=== PATIENT | female | born 1965 | race African-American/Black ===

== ENCOUNTER 2020-08-07 06:14 | Observation (INO) | payer MEDICARE ==
[~2020-08-07] VITALS: Ht 180.3 cm; Wt 90.7 kg
[2020-08-07 07:03] LABS: BASOPHILS 1.1 % (0-2); EOSINOPHILS 3.9 % (0-7); IMMATURE GRANULOCYTES 0.1 % (0-5); LYMPHOCYTE ABS# 2.86 10x3/uL (1.18-3.74); LYMPHOCYTES 28.4 % (15-50); MCH 29.5 pg (26.0-34.0); MCHC 30.3 g/dL (31.0-37.0); MCV 97.3 fL (80.0-100.0); MEAN PLATELET VOLUME 10.4 fL (7.4-10.4); MONOCYTES 6.6 % (2-11); NEUTROPHIL ABS# 6.03 10x3/uL (1.56-6.13); NEUTROPHILS 59.9 % (40-80); PLATELET COUNT 191 10x3/uL (130-400); RBC 3.39 10x6/uL (4.00-5.40); RDW 12.8 % (11.5-14.5); WBC 10.1 10x3/uL (4.8-10.8)
[2020-08-07 07:18] LABS: INR 1.11 (0.85-1.17); PROTIME 13.3 SECONDS (11.6-15.0)
[2020-08-07 07:26] LABS: ANION GAP 15.3 mmol/L (8-16); CALCIUM 9.6 mg/dL (8.5-10.1); CARBON DIOXIDE 25.5 mmol/L (21.0-32.0); CREATININE - SERUM 6.5 mg/dL (0.6-1.3); POTASSIUM - SERUM 3.8 mmol/L (3.5-5.1)
[2020-08-07 08:16] VITALS: BP 148/70; BMI 27.9
[2020-08-07] MEDS ORDERED: IMODIUM2 MG PO (08:26)
[2020-08-07] MEDS ORDERED: ACETAMINOPHEN500 M1 PO (08:27)
[2020-08-07] MEDS ORDERED: PLAVIX75 MG PO (08:28)
[2020-08-07] MEDS ORDERED: ELIQUIS5 MG PO (08:28)
[2020-08-07] MEDS ORDERED: LISINOPRIL2.5 MG PO (08:28)
[2020-08-07 15:31] VITALS: BP 147/70
[2020-08-07 15:34] VITALS: BP 140/70
[2020-08-07 17:12] VITALS: Ht 180.3 cm; Wt 90.7 kg
--- NOTE | 2020-08-07 19:00 | NUR ---
REPORT RECEIVED, PT CARE ASSUMED. PT SITTING UP IN BED, AAOX4, VISITING WITH FAMILY AT BEDSIDE. DENIES ANY OTHER NEEDS AT THIS TIME. BED LOWEST, SRX2, CL WITHIN REACH. CPOC.
--- NOTE | 2020-08-07 19:30 | NUR ---
PT C/O NAUSEA, PRN IM PHENERGAN ADMINISTERED, PER ORDERS.
[2020-08-07 21:41] VITALS: BP 160/74
[2020-08-08 00:39] VITALS: BP 159/75
[2020-08-08 08:26] VITALS: BP 168/68
[2020-08-08 09:23] LABS: BASOPHILS 0.4 % (0-2); EOSINOPHILS 1.4 % (0-7); HEMATOCRIT 32.3 % (36.0-48.0); HEMOGLOBIN 9.8 g/dL (12-16); IMMATURE GRANULOCYTES 0.3 % (0-5); LYMPHOCYTE ABS# 2.05 10x3/uL (1.18-3.74); LYMPHOCYTES 17.5 % (15-50); MCH 29.5 pg (26.0-34.0); MCHC 30.3 g/dL (31.0-37.0); MCV 97.3 fL (80.0-100.0); MEAN PLATELET VOLUME 10.6 fL (7.4-10.4); MONOCYTES 8.9 % (2-11); NEUTROPHIL ABS# 8.35 10x3/uL (1.56-6.13); NEUTROPHILS 71.5 % (40-80); PLATELET COUNT 171 10x3/uL (130-400); RBC 3.32 10x6/uL (4.00-5.40); RDW 12.8 % (11.5-14.5); WBC 11.7 10x3/uL (4.8-10.8)
[2020-08-08 09:33] LABS: ANION GAP 19.2 mmol/L (8-16); CARBON DIOXIDE 21.8 mmol/L (21.0-32.0)
[2020-08-08] MEDS ORDERED: HYDROCODON-ACE1 EAC7 PO (12:22)
--- NOTE | 2020-08-08 18:08 | NUR ---
RETURNED FROM DIALYSIS, REMOVED WHAT WAS REPORTED FROM SURGERY YESTERDAY A PIV, WHICH WAS ACTUALLY A MIDLINE. DRESSING APPLIED. FAMILY FEEDING PATIENT BEFORE DISCHARGE PAPERS.
--- NOTE | 2020-08-11 16:02 | OP ---
PATIENT NAME: JACE GALLARDO MEDICAL RECORD: [id number] :67 LOCATION:D. [id number] ADMISSION DATE:08/07/20 SURGEON: JAH PUGA MD DATE OF OPERATION: 08/07/2020 REFERRING PHYSICIAN: Dr. Srivastava, bin cleaner in [place]. PREOPERATIVE DIAGNOSES: End-stage renal disease and end-stage hemodialysis access. POSTOPERATIVE DIAGNOSES: End-stage renal disease and end-stage hemodialysis access. OPERATION PERFORMED: Implantation of a HeRO graft outflow device via the left internal jugular vein with removal of existing tunneled dialysis catheter from the left internal jugular vein and implantation of Acuseal PTFE 4-7 mm tapered graft from the proximal left brachial artery to the HeRO outflow device over the shoulder, posterior to the clavicle. SURGEON: Jah Puga MD ANESTHESIA: General endotracheal per [employer] WORKER PREOPERATIVE NOTE: Ms. Gallardo is a 55-year-old diabetic -[place] female with end-stage renal disease and end-stage hemodialysis access. She has had numerous accesses fail or become infected. She has peripheral arterial disease and has had a lower extremity amputations and is not considered a candidate for a femoral graft and besides that is known to have bilateral femoral vein occlusions and has an inferior vena cava filter. She is known to have a right chronic brachiocephalic venous occlusion and has an automatic intracardiac defibrillator pacemaker in place on the left. She was brought to the operating room today to try to implant a HeRO graft. If possible, if the right side can be accessed in the brachiocephalic vein crossed, it would be best probably to put the graft in the right upper extremity. Otherwise, the graft will have to be placed on the left. DESCRIPTION OF PROCEDURE: Under anesthesia in supine position, the patient was prepped and draped in a sterile manner with both arms abducted, prepped and draped in a sterile manner. Using ultrasound guidance and a micropuncture needle and fluoroscopy, I tried several times to cannulate the right internal jugular vein or collaterals and I was not able to access any venous drainage going to the right atrium from that side. We subsequently went to the left. I advanced a guidewire into the inferior vena cava through the left internal jugular tunneled catheter. That catheter was removed and the tip distal 3 inches sent for culture. An introducer sleeve was placed over the wire and contrast injection performed, which demonstrated an extremely tight stenosis due to the fibrin sheathing from the internal jugular vein to the right atrium. I used an 8 mm diameter angioplasty balloon to disrupt the fibrin sheath and was then able to do a wire exchange and place an Amplatz wire in the inferior vena cava. I then passed serial dilators over the guidewire under continuous fluoroscopy and eventually I was able to advance the HeRO outflow device with an 8-mm diameter angioplasty balloon within it. I was able to advance that well down into the right atrium and removed the balloon. Contrast injection revealed a very satisfactory positioning and function. The device was flushed with heparinized saline and clamped. The old tunneled catheter entry site was OPERATIVE REPORT [id number] JACE GALLARDO excised and hemostasis there obtained with electrocautery. With the person's pacemaker defibrillator covered with a magnet device. The wound was irrigated with saline and then closed with a running 4-0 Prolene suture. I made an incision over the tip of the shoulder, posterior to the clavicle and brought the heel device. Through a subcutaneous tunnel there into that wound where it would be connected to the new PTFE graft. I then used ultrasound and examined the brachial and axillary artery and then went on to make a proximal incision and exposed the proximal brachial artery, which was controlled with Silastic loops and that artery was opened for a short distance and then flushed proximally and distally with heparinized saline. I chose a 4-7 tapered Acuseal graft and bevelled to the tapered end and anastomosed it end-to-side, end of the graft to side of brachial artery with running 6-0 Prolene. The suture line was sealed with fibrin sealant and hemostasis was adequate and especially after the application of some fibrillar oxidized cellulose material. The graft was placed in a subcutaneous tunnel with the use of a single additional incision just above the antecubital space. The graft tunneled downwards on the medial aspect of the arm and then turned back upwards on the lateral aspect of the arm to the proximal incision where the graft was shortened and then aspirated, free return of arterial blood confirmed. It was then flushed with heparinized saline, clamped and capped. It was shortened and then attached to the HeRO modifier connector, which was then attached to the shortened venous outflow catheter. Then, with release of the occluding clamps, excellent flow developed immediately in the new AV graft. The wounds were all irrigated with saline and infiltrated with 0.25% Marcaine without epinephrine. Wound closure was performed without the use of a graft utilizing interrupted 3-0 Vicryl and running intracuticular 4-0 Stratafix. Doppler examination of the brachial artery distal to the origin of the brachial artery proximal and distal to the anastomosis revealed excellent continuous pulsatile flow proximally and distally. Pulsatile flow and patency. The hand was cool, but there was Doppler flow at the wrist in the radial artery. The patient's wounds were dressed with Dermabond glue and Maxorb. After application of Cavilon and then Tegaderms were applied. The patient was awakened and extubated and taken to the recovery room in stable condition. Blood loss during the operation was trivial on the order of only 10-20 mL, none was replaced. Sponges, instruments, and needles were accounted for. No drain was used and no surgical specimen was submitted for histopathology. The old tunneled catheter tip was sent for culture. PLAN: The patient will remain in overnight observation and go first apartment and have her first dialysis tomorrow morning accessing her new Acuseal graft. If no problems, then she should be able to go home tomorrow. I believe that she should continue on vancomycin at dialysis for a minimum of 6 weeks due to my concern over possible contamination of the new AV graft from the old tunneled dialysis catheter. I would probably as well treat her for a minimum of 6 months with low dose minocycline 50 mg daily or doxycycline at the same dosage she should be advised to take frequent Hibiclens baths and she should apply Bactroban or Povidone iodine to the nares daily or on dialysis days for the next 6 weeks. She takes Eliquis and Plavix chronically and she can resume those medications tomorrow morning. She is to return to see me in my office in 2 weeks and until then if possible, keep her dressings dry and clean and she is not to shower. OPERATIVE REPORT [id number] JACE GALLARDO She will need to have the running Prolene suture in the incision where we removed the old catheter entry site. She will need to have that Prolene suture removed that hopefully can be done in dialysis in [place] or at her physician's office. If not, she may certainly return to [place] in the next week or 10 days to have me remove the suture. TRANSINT:[id number] Voice Confirmation ID: [id number] DOCUMENT ID: [id number] cc: Dr. Srivastava in [place] ([facility] ) JAH PUGA MD at 1602 CC: CARLITOS SCHAFFER and CATHY COX DO [id number] DICTATION DATE: 08/10/20 155 FIRER PORTABLE BOILER: 08/10/202006 DIS IN 08/08/20 [place] [id number] [place] [id number]
== END 2020-08-08 18:43 | disposition home or self-care (01) ==
LOC: D.OPS 06:14 → D.M2 14:48 → OBSVTIME 14:49 → D.OPS 14:49 → D.M2 08-08 18:43
PROVIDERS: Internal Medicine; ADMIT Surgery; ATTEND Surgery
DX: E11.22 Type 2 diabetes mellitus with diabetic chronic kidney disease (principal); N18.6 End stage renal disease; Z99.2 Dependence on renal dialysis; D68.59 Other primary thrombophilia; I73.9 Peripheral vascular disease, unspecified; I13.0 Hypertensive heart and chronic kidney disease with heart failure and stage 1 through stage 4 chronic kidney disease, or unspecified chronic kidney disease; I50.9 Heart failure, unspecified; J44.9 Chronic obstructive pulmonary disease, unspecified; K21.9 Gastro-esophageal reflux disease without esophagitis; Z79.01 Long term (current) use of anticoagulants

== ENCOUNTER 2020-09-01 16:19 | Inpatient (IN) | payer MEDICARE ==
[~2020-09-01] VITALS: Ht 180.3 cm; Wt 94.2 kg
[~2020-09-01 16:19] MED LIST: ACETAMINOPHEN500 M1 PO; ELIQUIS5 MG PO; HYDROCODON-ACE1 EAC7 PO; IMODIUM2 MG PO; LISINOPRIL2.5 MG PO; PLAVIX75 MG PO
--- NOTE | 2020-09-01 20:30 | NUR ---
REPORT RECEIVED. PT A&O, UP IN BED W/ C/O N/V. NO S/S OF DISTRESS OBSERVED. RR EVEN & UNLABORED ON RA. R IJ SL. INITIAL ORDERS RECIEVED: ADMIT TO MED 2 AND KEEP NPO. WILL NOTIFY RENAL OF PTS ADMIT ONCE ADMISSION COMPLETE. BED LOCKED AND LOWERED, CL IN REACH. WILL CONT POC.
[2020-09-01 21:31] VITALS: BP 151/80
[2020-09-01 21:54] VITALS: BP 151/80; BMI 28.6
--- NOTE | 2020-09-01 22:52 | NUR ---
NOTIFIED DR. VIVAR ABOUT PTS ADMISSION. ORDERS RECEIVED FOR STAT [employer] BMP WELL TYLENOL FOR PAIN.
[2020-09-01 22:55] LABS: BASOPHILS 0.5 % (0-2); EOSINOPHILS 1.7 % (0-7); HEMOGLOBIN 8.7 g/dL (12-16); LYMPHOCYTES 16.5 % (15-50); MCH 29.5 pg (26.0-34.0); MCHC 30.9 g/dL (31.0-37.0); MCV 95.3 fL (80.0-100.0); MEAN PLATELET VOLUME 8.5 fL (7.4-10.4); MONOCYTES 6.6 % (2-11); NEUTROPHILS 74.7 % (40-80); PLATELET COUNT 153 10x3/uL (130-400); RBC 2.93 10x6/uL (4.00-5.40); RDW 13.8 % (11.5-14.5); WBC 11.8 10x3/uL (4.8-10.8)
[2020-09-01 23:01] LABS: ANION GAP 16.5 mmol/L (8-16); CALCIUM 9.5 mg/dL (8.5-10.1); CARBON DIOXIDE 28.1 mmol/L (21.0-32.0); CREATININE - SERUM 7.4 mg/dL (0.6-1.3); POTASSIUM - SERUM 5.6 mmol/L (3.5-5.1)
[2020-09-02 00:15] VITALS: BP 106/47
--- NOTE | 2020-09-02 01:07 | NUR ---
PT C/O OF BURING WHILE PUSHING ZOFRAN THROUGH IJ. NO S/S OF INFILTRATION. FLUSHES EASILY WITH NO C/O PAIN. SITED 22G PIV TO R FA. ZOFRAN ADMINISTERED. NO NEEDS EXPRESSED AT THIS TIME. WILL CONT POC.
[2020-09-02 05:05] VITALS: BP 146/77
--- NOTE | 2020-09-02 06:50 | NUR ---
PT LYING IN BED WITH EYES CLOSES. RAISES TO VERBAL STIMULI. RESP EVEN AND UNLABORED. AAO X4. DENIES NEEDS AT THIS TIME. CLIR. BED IN LOWEST POSITION. FAMILY MEMBER AT BEDSIDE
[2020-09-02 07:32] VITALS: BP 142/75
[2020-09-02 10:50] LABS: BASOPHILS 1.2 % (0-2); EOSINOPHILS 1.8 % (0-7); HEMATOCRIT 27.4 % (36.0-48.0); HEMOGLOBIN 8.5 g/dL (12-16); LYMPHOCYTES 22.7 % (15-50); MCH 29.6 pg (26.0-34.0); MCHC 31.1 g/dL (31.0-37.0); MCV 95.2 fL (80.0-100.0); MEAN PLATELET VOLUME 8.5 fL (7.4-10.4); MONOCYTES 6.5 % (2-11); NEUTROPHILS 67.8 % (40-80); PLATELET COUNT 148 10x3/uL (130-400); RBC 2.88 10x6/uL (4.00-5.40); RDW 13.7 % (11.5-14.5); WBC 11.8 10x3/uL (4.8-10.8)
[2020-09-02 11:10] VITALS: BP 131/60
--- NOTE | 2020-09-02 11:50 | NUR ---
PT LEFT UNIT FOR PROCEDURE ACCOMPANIED BY HOSPITAL STAFF
[2020-09-02 12:31] LABS: INR 1.19 (0.85-1.17)
[2020-09-02 13:09] VITALS: Ht 180.3 cm; Wt 94.2 kg
--- NOTE | 2020-09-02 18:40 | NUR ---
XRAY TAKEN AT END OF CASE TO VERIFY COUNT. RN CHANGE 3 TIMES DUE TO OTHER EMERGENCY CASE. SCRUB TECHS CHANGE OUT FOR CALL RELEIF. FINAL COUNT VERIFIED BY XRAY IN ROOM BEFORE PATIENT WAS EXTUBATED. DR PUGA AGREED FOR XRAY TO VERIFY THE FINAL COUNT
--- NOTE | 2020-09-02 19:34 | NUR ---
CARE ASSUMED OF PT BEGINS @ 193, REPORT FROM CAITLIN MAYNARD CRNA AND BREE HOLLIDAY RN.
--- NOTE | 2020-09-02 19:35 | NUR ---
REPORT RECEIVED. PT IN RECOVERY ROOM FROM SURGERY OR OR STAFF. UPDATED PTS FAMILY.
--- NOTE | 2020-09-02 20:12 | NUR ---
PT REMAINS UNAROUSABLE TO SEMI-AGGRESSIVE STIMULATION. ALL VSS. WILL CTM.
--- NOTE | 2020-09-02 21:01 | NUR ---
2100 - PT REMAINS UNAROUSEABLE TO MODERATELY AGGRESSIVE STIMULATION. ALL VSS, ALL VS WITHIN PREOPERATIVE BASELINES. WILL CTM.
--- NOTE | 2020-09-02 23:32 | NUR ---
2300 - DR JAMES AT BEDSIDE TO EVALUATE PROTRACTED WAKEUP TIME
--- NOTE | 2020-09-02 23:33 | NUR ---
ORDERS RECEIVED TO TRANSFER TO ICU, CT HEAD
[2020-09-03] VITALS (36 sets, daily range): BP systolic 90–152; BP diastolic 56–83
--- NOTE | 2020-09-03 | NUR ---
RECEIVED PT FROM THE OR WITH OR STAFF PRESENT. DR JAMES ALSO PRESENT AT BEDSIDE. TRANSFERRED PT TO CT AND THEN BACK TO ICU. ATTACHED PT TO MONITORS. SHIFT ASSESSMENT COMPLETED, SEE FLOWSHEET FOR DETAILS. PT WILL OPEN EYES BUT NOT TO COMMANDS. PT AT TIMES APPEARS TO BE STARING OFF TO THE RIGHT WITH HER EYES POINTED UPWARD. PUPILS ARE EQUAL AND SLUGGISH TO REACT. PT WILL NOT FOLLOW COMMANDS. NO MOVEMENT SEEN ON PATIENTS RIGHT SIDE, PT WILL HOWEVER MOVE HER LEFT ARM OCCASSIONALLY BUT IT DOES NOT SEEM TO BE PURPOSEFUL MOVEMENTS. PT OCCASSIONALLY ALSO APPEARS TO BE TRYING TO FLOP ONTO HER RIGHT SIDE BUT IT ONLY LASTS A MOMENT AND THEN SHE FLOPS BACK ONTO HER BACK. CT RESULTS CALLED TO DR JAMES REQUESTED, ORDERS TO CONSULT NEURO. DR GIRALDO PAGED AND AWAITING CALL BACK AT THIS TIME. WILL CONTINUE TO MONITOR PT.
--- NOTE | 2020-09-03 01:14 | NUR ---
UPON RECHECKING NEURO ASSESSMENT WHILE WAITING CERTIFIED WELLNESS PROGRAM COORDINATOR BACK FROM DR GIRALDO, IT IS NOTED THERE ARE NEUROLOGICAL CHANGES. SEE NEURO ASSESSMENT FLOWSHEET FOR DETAILS.
--- NOTE | 2020-09-03 01:20 | NUR ---
SPOKE WITH DR GIRALDO. ORDERS RECEIVED. NO CHANGES NOTED AT THIS TIME.
[2020-09-03 06:07] LABS: BASOPHILS 0.5 % (0-2); EOSINOPHILS 0.1 % (0-7); HEMATOCRIT 23.8 % (36.0-48.0); LYMPHOCYTES 9.2 % (15-50); MCH 29.7 pg (26.0-34.0); MCHC 30.5 g/dL (31.0-37.0); MONOCYTES 6.7 % (2-11); NEUTROPHILS 83.5 % (40-80); PLATELET COUNT 119 10x3/uL (130-400); RBC 2.44 10x6/uL (4.00-5.40); RDW 13.8 % (11.5-14.5)
[2020-09-03 06:08] LABS: CALCIUM 8.6 mg/dL (8.5-10.1); CARBON DIOXIDE 21.1 mmol/L (21.0-32.0); CREATININE - SERUM 9.8 mg/dL (0.6-1.3); POTASSIUM - SERUM 5.1 mmol/L (3.5-5.1)
[2020-09-03 06:09] LABS: MCV 97.5 fL (80.0-100.0); WBC 14.9 10x3/uL (4.8-10.8)
[2020-09-03 06:10] LABS: HEMOGLOBIN 7.2 g/dL (12-16)
[2020-09-03 06:14] LABS: ALBUMIN 3.2 g/dL (3.4-5.0); BILIRUBIN - TOTAL 0.26 mg/dL (0.2-1.3); PROTEIN - SERUM 6.4 g/dL (6.4-8.2)
--- NOTE | 2020-09-03 07:00 | NUR ---
RECEIVED BEDSIDE REPORT ON PATIENT AND ASSUMED CARE. PATIENT RESTING WITH EYES CLOSED, WITHDRAWS TO PAINFUL STIMULI TO LEFT SIDE, NO RESPONSE TO RIGHT SIDE, WILL OPEN EYES TO NOXIOUS STIMULI, NON-VERBAL. RIGHT PUPIL GREATER THAN LEFT PUPIL 5 MM > 3 MM, SLUGGISH TO RESPOND BUT REACTIVE TO LIGHT. 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 RIGHT FA 22 GA IV NSL, RIGHT IJ 18 GA IV NSL. LEFT SUBCLAVIAN HEMISPLIT NOTED FOR DIALYSIS. PATIENT TURNED AND REPOSIONED IN BED. CM - ST RATE 106, RR - 16 BBS - CLEAR, DIMINISHED IN THE BASES. ON 02 VIA NC AT 2 LPM WITH SO2 - 95%.
--- NOTE | 2020-09-03 08:15 | NUR ---
MRI BRAIN ORDERED BY DR GIRALDO. PATIENT HAS PACEMAKER. INFORMED PATIENTS NURSE JAH AND CANCELLED THE ORDER.
--- NOTE | 2020-09-03 12:36 | NUR ---
SPOKE TO PATIENTS SISTER (PONCHO) AND UPDATED NAD ANSWERED QUESTIONS.
--- NOTE | 2020-09-03 15:35 | NUR ---
DIALYSIS AT ROOM AND STARTED.
--- NOTE | 2020-09-03 15:44 | NUR ---
UNIT 03/27 PRBC STARTED INFUSING WITH DIALYSIS.
--- NOTE | 2020-09-03 16:20 | NUR ---
UNIT 03/27 PRBC'S COMPLETED INFUSING, NO S/S OF TRANSFUSION REACTION. DIALYSIS ONGOING.
--- NOTE | 2020-09-03 17:55 | NUR ---
DIALYSIS COMPLETED. WAS ABLE TO REMOVE 600 ML OF FLUID.
--- NOTE | 2020-09-03 18:38 | NUR ---
ORAL CARE PROVIDED TO PATIENT.
[2020-09-04] VITALS (33 sets, daily range): BP systolic 64–168; BP diastolic 38–85
[2020-09-04 07:29] LABS: BASOPHILS 0.5 % (0-2); EOSINOPHILS 0.1 % (0-7); HEMATOCRIT 27.2 % (36.0-48.0); LYMPHOCYTES 7.6 % (15-50); MCH 29.8 pg (26.0-34.0); MEAN PLATELET VOLUME 9.4 fL (7.4-10.4); MONOCYTES 9.1 % (2-11); NEUTROPHILS 82.7 % (40-80); PLATELET COUNT 114 10x3/uL (130-400); RBC 2.92 10x6/uL (4.00-5.40); RDW 14.9 % (11.5-14.5); WBC 16.9 10x3/uL (4.8-10.8)
[2020-09-04 07:37] LABS: HEMOGLOBIN 8.7 g/dL (12-16); MCV 93.3 fL (80.0-100.0)
[2020-09-04 07:49] LABS: ALBUMIN 3.3 g/dL (3.4-5.0); ANION GAP 18.3 mmol/L (8-16); BILIRUBIN - TOTAL 0.45 mg/dL (0.2-1.3); CALCIUM 9.4 mg/dL (8.5-10.1); CARBON DIOXIDE 25.5 mmol/L (21.0-32.0); CREATININE - SERUM 7.9 mg/dL (0.6-1.3); POTASSIUM - SERUM 4.8 mmol/L (3.5-5.1); PROTEIN - SERUM 6.9 g/dL (6.4-8.2)
--- NOTE | 2020-09-04 09:18 | NUR ---
Nutrition follow-up: Pt sleeping at time of walking rounds. NPO Labs reviewed Wt: 2002# Will need nutrition support started within 24-48 hours if pt remains NPO due to not waking up for safe oral intake. RDN will follow-up on progress toward nutrition goals in 3-4 days.
--- NOTE | 2020-09-04 11:25 | NUR ---
ADILIA DRAIN REMOVED FROM LEFT ARM.
--- NOTE | 2020-09-04 20:40 | NUR ---
PT HR ALARMING LOW RATE AT 69, UPON ENTRANCE INTO ROOM PT NOTED TO BE APNEIC. RT NOTIFIED, CODE BLUE CALLED, SEE RECORD FOR DETAILS.
--- NOTE | 2020-09-04 23:30 | NUR ---
PT MARY HERNANDEZ UPDATED REGARDING PT STATUS, ALL QUESTIONS ANSWERED.
[2020-09-05] VITALS (88 sets, daily range): BP systolic 77–156; BP diastolic 42–88
[2020-09-05 06:22] LABS: ALBUMIN 2.5 g/dL (3.4-5.0); ANION GAP 17.8 mmol/L (8-16); BILIRUBIN - TOTAL 0.42 mg/dL (0.2-1.3); CALCIUM 8.7 mg/dL (8.5-10.1); CARBON DIOXIDE 25.8 mmol/L (21.0-32.0); MAGNESIUM - SERUM 2.6 mg/dL (1.8-2.4); POTASSIUM - SERUM 4.6 mmol/L (3.5-5.1); PROTEIN - SERUM 6.2 g/dL (6.4-8.2)
[2020-09-05 06:33] LABS: CREATININE - SERUM 10.2 mg/dL (0.6-1.3)
--- NOTE | 2020-09-05 07:31 | NUR ---
CALLED PT SON, LAZARA ANDERSON-LEFT MESSAGE.
[2020-09-05 09:08] LABS: HEMATOCRIT 25.3 % (36.0-48.0); HEMOGLOBIN 7.9 g/dL (12-16); MCH 29.7 pg (26.0-34.0); MCHC 31.4 g/dL (31.0-37.0); MCV 94.6 fL (80.0-100.0); MEAN PLATELET VOLUME 9.2 fL (7.4-10.4); PLATELET COUNT 133 10x3/uL (130-400); RBC 2.67 10x6/uL (4.00-5.40); RDW 14.2 % (11.5-14.5); WBC 20.4 10x3/uL (4.8-10.8)
[2020-09-05 09:56] LABS: LYMPHOCYTES 23 % (15-50); NEUTROPHILS 77 % (40-80); PLATELET ESTIMATE NORMAL
[2020-09-05 11:10] LABS: HEPATITIS C ANTIBODY 0.1 S/CO RAT (0.0-0.9)
--- NOTE | 2020-09-05 11:20 | NUR ---
PT LYING IN BED ON VENT AT THIS TIME. SON AT BEDSIDE. LEVOPHED TITRATED TO ORDER. SEE IV FLOWSHEET. 0700 TEMP IS 103.6 BLOOD CULTURES OBTAINED AND ICE PACKS APPLIED TO GROIN AND AXILLARIES. TEMP RECHECK IS 99.8 AXILLARY. ALSO LARGE LIQUID BROWN BOWEL MOVEMENT NOTED. TOTAL LINEN CARE PROVIDED ALONG WITH JERONIMO CARE. TURNED Q2H, ORAL CARE PROVIDED Q2H. WILL CONTINUE PLAN OF CARE.
--- NOTE | 2020-09-05 11:24 | NUR ---
AFTER SPEAKING WITH PTS SON AND DR COX, A FAMILY MEETING WITH DR COX IS SCHEDULED FOR 1 THIS AFTERNOON.
--- NOTE | 2020-09-05 13:30 | NUR ---
DR COX HAS SPOKEN WITH PTS SON AT THIS TIME. QUESTIONS AND CONCERNS ADRESSED.
[2020-09-06] VITALS (101 sets, daily range): BP systolic 60–141; BP diastolic 29–109
[2020-09-06 05:29] LABS: BASOPHILS 0.3 % (0-2); HEMATOCRIT 25.7 % (36.0-48.0); IMMATURE GRANULOCYTES 0.6 % (0-5); LYMPHOCYTE ABS# 3.55 10x3/uL (1.18-3.74); LYMPHOCYTES 18.6 % (15-50); MCH 29.1 pg (26.0-34.0); MCHC 29.2 g/dL (31.0-37.0); MCV 99.6 fL (80.0-100.0); MEAN PLATELET VOLUME 11.7 fL (7.4-10.4); NEUTROPHIL ABS# 13.22 10x3/uL (1.56-6.13); NEUTROPHILS 69.5 % (40-80); PLATELET COUNT 152 10x3/uL (130-400); RBC 2.58 10x6/uL (4.00-5.40); RDW 14.7 % (11.5-14.5); WBC 19.1 10x3/uL (4.8-10.8)
[2020-09-06 05:32] LABS: HEMOGLOBIN 7.5 g/dL (12-16)
--- NOTE | 2020-09-06 05:43 | NUR ---
DR LIRA NOTIFIED OF HGB OF 7.5 ON AM LAB, NO ORDERS RECEIVED AT THIS TIME.
[2020-09-06 05:45] LABS: BILIRUBIN - TOTAL 0.52 mg/dL (0.2-1.3); CALCIUM 9.3 mg/dL (8.5-10.1); CREATININE - SERUM 11.7 mg/dL (0.6-1.3); POTASSIUM - SERUM 5.4 mmol/L (3.5-5.1); PROTEIN - SERUM 5.8 g/dL (6.4-8.2)
[2020-09-06 06:10] LABS: ANION GAP 21.7 mmol/L (8-16); CARBON DIOXIDE 20.7 mmol/L (21.0-32.0)
--- NOTE | 2020-09-06 09:22 | NUR ---
PER DR COX, PLACE OGT FOR TUBE FEEDS. 16F PLACED. WAITING TO KUB RESULTS FOR PLACEMENT VERIFICATION.
--- NOTE | 2020-09-06 10:06 | NUR ---
OGT ADVANCED 5CM PER WIL INTREPRETATION RECCOMENDATION. WILL START TUBE FEEDS WHEN RECIEVED FROM [place] [facility] A DRIVER. PER DR SWENSON TUBE FEEDS IS OKAY.
--- NOTE | 2020-09-06 10:15 | NUR ---
TUBE FEEDS INITIATED PER DR COX ORDERS AT 10ML/HR.
--- NOTE | 2020-09-06 10:33 | NUR ---
SPOKE WITH PTS SON AND DAUGHTER (RACHELLE), UPDATES PROVIDED. ALSO AT THIS TIME DR GIRALDO CAME TO SEE PT. ORDERS RECIEVED. WILL CONTINUE PLAN OF CARE.
--- NOTE | 2020-09-06 13:08 | NUR ---
RIGHT EJ AND RIGHT FA PIV DC'D AT THIS TIME, LEFT ARM DRSG REMOVED,
--- NOTE | 2020-09-06 13:11 | NUR ---
RESULTS OF NM BRAIN STUDY CALLED TO DR GIRALDO AND DR COX. DR COX STATED SHE WOULD CALL THE FAMILY.
--- NOTE | 2020-09-06 16:06 | NUR ---
PTS FAMILY (SON AND BROTHER) CAME BY TO SEE PT. UDPATES PROVIDED. WILL CONTINUE PLAN OF CARE.
[2020-09-06 20:10] LABS: EOSINOPHILS 0.8 % (0-7)
[2020-09-06 20:12] LABS: BASOPHILS 0.4 % (0-2); HEMATOCRIT 23.5 % (36.0-48.0); LYMPHOCYTES 15.9 % (15-50); MCH 29.5 pg (26.0-34.0); MCHC 27.7 g/dL (31.0-37.0); MEAN PLATELET VOLUME 9.9 fL (7.4-10.4); MONOCYTES 7.5 % (2-11); NEUTROPHILS 75.4 % (40-80); PLATELET COUNT 136 10x3/uL (130-400); RBC 2.21 10x6/uL (4.00-5.40); RDW 16.3 % (11.5-14.5); WBC 15.2 10x3/uL (4.8-10.8)
[2020-09-06 20:14] LABS: HEMOGLOBIN 6.5 g/dL (12-16); MCV 106.4 fL (80.0-100.0)
[2020-09-06 20:23] LABS: BILIRUBIN - TOTAL 0.41 mg/dL (0.2-1.3); CALCIUM 9.7 mg/dL (8.5-10.1); CREATININE - SERUM 13.3 mg/dL (0.6-1.3); PROTEIN - SERUM 5.1 g/dL (6.4-8.2)
[2020-09-06 20:25] LABS: POTASSIUM - SERUM 7.8 mmol/L (3.5-5.1)
--- NOTE | 2020-09-06 20:25 | NUR ---
Critical Hgb 6.5 relayed to assigned nurse NEAL Tran
[2020-09-06 20:33] LABS: ALBUMIN 1.7 g/dL (3.4-5.0); ANION GAP 34.1 mmol/L (8-16); CARBON DIOXIDE 11.7 mmol/L (21.0-32.0)
[2020-09-07] VITALS (47 sets, daily range): BP systolic 43–114; BP diastolic 20–90
[2020-09-07 04:01] LABS: BASOPHILS 0.4 % (0-2); EOSINOPHILS 1.6 % (0-7); HEMATOCRIT 27.9 % (36.0-48.0); LYMPHOCYTES 19.9 % (15-50); MCH 29.1 pg (26.0-34.0); MCHC 28.9 g/dL (31.0-37.0); MEAN PLATELET VOLUME 10.2 fL (7.4-10.4); MONOCYTES 6.2 % (2-11); NEUTROPHILS 71.9 % (40-80); PLATELET COUNT 126 10x3/uL (130-400); RDW 19.1 % (11.5-14.5); WBC 14.9 10x3/uL (4.8-10.8)
[2020-09-07 04:04] LABS: HEMOGLOBIN 8.1 g/dL (12-16); MCV 100.6 fL (80.0-100.0); RBC 2.78 10x6/uL (4.00-5.40)
[2020-09-07 04:28] LABS: ALBUMIN 1.7 g/dL (3.4-5.0); BILIRUBIN - TOTAL 0.46 mg/dL (0.2-1.3); CALCIUM 9.2 mg/dL (8.5-10.1); CREATININE - SERUM 13.3 mg/dL (0.6-1.3); PROTEIN - SERUM 5.4 g/dL (6.4-8.2)
[2020-09-07 04:55] LABS: ANION GAP 32.5 mmol/L (8-16); CARBON DIOXIDE 15.5 mmol/L (21.0-32.0)
--- NOTE | 2020-09-07 07:30 | NUR ---
ISAAC STOPPED PER DR LIRA.
--- NOTE | 2020-09-07 11:16 | NUR ---
[phone] phone call to elaine... information given re: patient status and an 1020 rec'd call back from marie spoke with laine, more information given...he stated that he would give information to his senior consulting manager and would call back to let us know re: donation. [phone] call back fron laine stated that they will rule out patient for donation at this time for history, we need to call back with CARMEN, [facility] may be a potential donor for tissue
--- NOTE | 2020-09-07 12:56 | NUR ---
PT CODING. CALLED EMERGENCY CONTACT, PONCHO, TO UPDATE.
--- NOTE | 2020-09-07 13:03 | NUR ---
LAZARA HERNANDEZ CALLED. DR RAGLAND TIME OF AT 1301. MARY IS ON WAY TO HOSPITAL AT THIS TIME.
--- NOTE | 2020-09-07 13:19 | NUR ---
POST MORTEM CARE PROVIDED.
--- NOTE | 2020-09-07 13:45 | NUR ---
TYLER NOTIFIED OF PATIENT ,
--- NOTE | 2020-09-07 14:00 | NUR ---
CALLED PONCHO TO FIND OUT WHAT HOME THE FAMILY WANTED TO USE. STATED SHE WOULD GET IN CONTACT WITH THE PT'S CHILDREN AND CALL ME BACK WITH INFORMATION.
--- NOTE | 2020-09-07 16:29 | NUR ---
HOME HERE FOR PATIENT
== END 2020-09-07 13:01 | DRG 871 ==
LOC: D.M2 16:19 → OBSVTIME 22:59 → D.ICU 09-02 16:17 → D.M2 09-02 16:17 → D.ICU 09-02 23:48
PROVIDERS: Internal Medicine Nephrology; Internal Medicine Pulmonary Disease; Surgery; ADMIT Internal Medicine; ATTEND Internal Medicine
PROC: B544ZZA Ultrasonography of Left Jugular Veins, Guidance (ICD-10-PCS; 2020-09-02)
PROC: 0XP70YZ Removal of Other Device from Left Upper Extremity, Open Approach (ICD-10-PCS; principal; 2020-09-02 12:00)
PROC: 0JH63XZ Insertion of Tunneled Vascular Access Device into Chest Subcutaneous Tissue and Fascia, Percutaneous Approach (ICD-10-PCS; 2020-09-02 12:00)
PROC: 05HN33Z Insertion of Infusion Device into Left Internal Jugular Vein, Percutaneous Approach (ICD-10-PCS; 2020-09-02 12:00)
PROC: 5A12012 Performance of Cardiac Output, Single, Manual (ICD-10-PCS; 2020-09-04)
PROC: 0BH17EZ Insertion of Endotracheal Airway into Trachea, Via Natural or Artificial Opening (ICD-10-PCS; 2020-09-04)
PROC: 5A1945Z Respiratory Ventilation, 24-96 Consecutive Hours (ICD-10-PCS; 2020-09-04)
DX: A41.9 Sepsis, unspecified organism (principal); N18.6 End stage renal disease; G93.6 Cerebral edema; J96.01 Acute respiratory failure with hypoxia; J69.0 Pneumonitis due to inhalation of food and vomit; T82.858A Stenosis of other vascular prosthetic devices, implants and grafts, initial encounter; I13.2 Hypertensive heart and chronic kidney disease with heart failure and with stage 5 chronic kidney disease, or end stage renal disease; D68.59 Other primary thrombophilia; G93.40 Encephalopathy, unspecified; G81.91 Hemiplegia, unspecified affecting right dominant side; G93.1 Anoxic brain damage, not elsewhere classified; I97.811 Intraoperative cerebrovascular infarction during other surgery; I46.9 Cardiac arrest, cause unspecified; Y83.9 Surgical procedure, unspecified as the cause of abnormal reaction of the patient, or of later complication, without mention of misadventure at the time of the procedure; E11.22 Type 2 diabetes mellitus with diabetic chronic kidney disease; I50.9 Heart failure, unspecified; Z99.2 Dependence on renal dialysis; K21.9 Gastro-esophageal reflux disease without esophagitis; J44.9 Chronic obstructive pulmonary disease, unspecified; E11.51 Type 2 diabetes mellitus with diabetic peripheral angiopathy without gangrene; E87.5 Hyperkalemia; Z89.512 Acquired absence of left leg below knee; D64.9 Anemia, unspecified; Z86.73 Personal history of transient ischemic attack (TIA), and cerebral infarction without residual deficits